=== PATIENT | female | born 1990 | race Caucasian/White ===

== ENCOUNTER → 2018-02-11 | Outpatient (CLI) | payer BC | END | disposition home or self-care (01) | LOC: C.PATHSPEC 16:43 | PROVIDERS: ATTEND Plastic Surgery | DX: D23.62 Other benign neoplasm of skin of left upper limb, including shoulder (principal) ==

== ENCOUNTER 2020-05-25 01:22 | Inpatient (IN) ==
[2020-05-25] MEDS ORDERED: OXYTOCIN 30 UNITS/500 ML BAG IV PRN ×3 (01:47→12:37)
[2020-05-25 02:22] LABS: Hematocrit (blood only) 36.3 % (37-47); Hemoglobin 12.3 g/dL (12.0-16.0); Mean Corpuscular Volume 91.4 fL (80-100); RDW Coefficient of Variation 12.4 % (11.5-14.5); RDW Standard Deviation 41.5 fL (36.4-46.3); Red Blood Count 3.97 M/uL (4.2-5.4); White Blood Count 16.56 K/uL (4.8-10.8)
[2020-05-25 02:55] LABS: Mean Corpuscular Hgb Conc 33.9 g/dL (32-36); Mean Platelet Volume 13.5 fL (7.4-10.4); Platelet Count 154 K/uL (130-400)
[2020-05-25 02:56] LABS: Basophils # (auto) 0.02 K/uL (0-0.2); Basophils % (auto) 0.1 %; Eosinophils # (auto) 0.11 K/uL (0-0.5); Eosinophils % (auto) 0.7 %; Immature Granulocytes # (auto) 0.11 K/uL (0.00-0.02); Immature Granulocytes % (auto) 0.7 %; Lymphocytes # (auto) 2.49 K/uL (1.2-3.4); Monocytes # (auto) 1.07 K/uL (0.11-0.59); Monocytes % (auto) 6.5 %; Neutrophils # (auto) 12.76 K/uL (1.4-6.5); Platelet Estimate Normal (Normal); RBC Morphology Unremarkable
[2020-05-25] MEDS: LACTATED RINGER'S 1,000 ML IV PRN ×2 (04:07→08:40)
--- NOTE | 2020-05-25 04:09 | Labor Progress Brief Note ---
Date of Service May 25, 2020 Subjective Resting in bed, FOB at bedside. No evident discomfort. Assessment & Plan (1) PROM (premature rupture of membranes): Water broken at 38 5/7, no labor yet. Discussed with patient and FOB the recommendation to begin labor using pitocin. They agree to plan. Admission and Anticipated Discharge Date Admission Date: May 25, 2020 Physical Exam Physical Exam: Cervix 3/90/0 x 2 exams since arrival. No active change. Known vertex from my recent exam in the office setting. T Cat 1. [place] quiet. LOF clear. Results & Data ([facility]) Vital Signs (Past 12 Hours) Vital Signs Temp Pulse Resp BP 05/25/20 04:00 66 106/61 05/25/20 03:50 97.9 F 05/25/20 01:43 98.4 F 92 H 18 129/85 05/25/20 01:38 98.4 F 92 H 18 129/85 Laboratory Results Laboratory Results - last 24 hr 05/25/20 01:58 WBC 16.56 H RBC 3.97 L Hgb 12.3 Hct 36.3 L MCV 91.4 MCH 31.0 MCHC 33.9 RDW Std Deviation 41.5 RDW Coeff of Claude 12.4 Plt Count 154 MPV 13.5 H Immature Gran % (Auto) 0.7 Neut % (Auto) 77.0 Lymph % (Auto) 15.0 [place] % (Auto) 6.5 Eos % (Auto) 0.7 Baso % (Auto) 0.1 Neut # (Auto) 12.76 H Lymph # (Auto) 2.49 [place] # (Auto) 1.07 H Eos # (Auto) 0.11 Baso # (Auto) 0.02 Immature Gran # (Auto) 0.11 H Platelet Estimate Normal RBC Morphology Unremarkable Coding Level of Care Code None Diagnoses PROM (premature rupture of membranes) O42.90
[2020-05-25] MEDS ORDERED: SODIUM CHLORIDE 0.9% INJ 10 ML VIAL ONE (06:21)
[2020-05-25] MEDS ORDERED: BUPIVACAINE 0.25% 30 ML VIAL ONE (06:21)
[2020-05-25] MEDS ORDERED: ePHEDrine sulfate 50 MG/ML AMP ONE (06:21)
[2020-05-25] MEDS ORDERED: fentaNYL citrate 100 MCG/2 ML VIAL ONE (06:21)
[2020-05-25] MEDS ORDERED: fentaNYL 2MCG/ML ROPIVACAINE 1.25MG/ML 100 ML BAG EPI ONE (06:22)
[2020-05-25] MEDS ORDERED: ONDANSETRON INJ 2 MG/ML 2 ML VIAL IV PRN (06:29)
[2020-05-25] MEDS ORDERED: diphenhydrAMINE 50 MG/ML VIAL IV PRN (06:29)
[2020-05-25] MEDS ORDERED: fentaNYL 2MCG/ML ROPIVACAINE 1.25MG/ML 100 ML BAG EPI PRN (06:29)
[2020-05-25] MEDS ORDERED: ePHEDrine sulfate 50 MG/ML AMP IV PRN (06:29)
[2020-05-25] MEDS ORDERED: NALOXONE HCL 1 MG in SODIUM CHLORIDE 0.9% 1000ML 1,000 ML IV PRN (06:29)
[2020-05-25] MEDS ORDERED: NALOXONE HCL 0.4 MG/1 ML VIAL/CARP IV PRN (06:29)
--- NOTE | 2020-05-25 06:29 | Anesthesiology Consultation ---
Date of Service May 25, 2020 Assessment & Plan ASA ASA2 Proposed Anesthesia Anesthesia Type: Labor Epidural Risk / Benefits Reviewed With: PT / POA / Parent / Guardian, Accepts Plan and Informed Consent Obtained History Height/Weight Height: 5 ft 7 in Weight: 73.028 kg Allergies Allergy/AdvReac Type Severity Reaction Status Date / Time No Known Drug Allergies Allergy Uncoded 05/09/20 09:49 Medications Home Medications Medication Instructions Recorded Confirmed Last Taken prenat.vits,hank,anp-akie-gurra 1 tab PO DAILY 10/20/19 05/23/20 05/24/20 21:00 Active Medications Generic Name Dose Route Start Last Admin Trade Name Freq PRN Reason Stop Dose Admin Lactated Ringer's 1,000 mls @ 125 mls/hr 05/25/20 01:47 05/25/20 06:15 Lr IV 05/27/20 01:46 999 mls/hr .Q8H PRN Titration L&D Protocol Protocol Oxytocin 30 units in 500 mls @ 7 mls/hr 05/25/20 03:55 05/25/20 05:40 Pitocin IV 05/27/20 03:54 0.42 units/hr .Q24H PRN 7 mls/hr Labor Induction/Augmentation Titration Protocol 0.42 UNITS/HR Past Medical History Medical History (Updated 05/25/20 @ 04:08 by Agnieszka Hargrove MD) Epidermal cyst Hx of varicella UTI (urinary tract infection) during Exercise / Class Metabolic Activity II 4-5 Yardwork/Stairs/Walk up hill Past Family History Family History Father Dyslipidemia Other Heart disease Hypertension Past Surgical History Surgical History [place] teeth removed Past Anesthesia History No Hx of Anesthesia Complications and No Family Hx of Anesthesia Complications History of PONV No Hx of PONV and No Hx of Motion Sickness Social History Smoking Status: Never smoker Hx Alcohol Use: No Hx Substance Use: No Review of Systems denies fever/cough/ colds/ chest pain/ SOB/ GAYLE denies GAYLE Physical Exam Vital Signs Last Vital Signs Temp 36.6 C 05/25/20 03:50 Pulse 100 H 05/25/20 07:03 Resp 18 05/25/20 06:01 BP 121/78 05/25/20 07:02 Pulse Ox 96 05/25/20 07:03 ENMT Mouth: no TMJ abnormality and no dentition abnormality Thyromental Distance: > or= 3.5 Finger Breadths Mallampati Class: II Neck neck extension not limited Respiratory normal respiratory effort; no respiratory distress Auscultation: lungs clear to auscultation bilaterally Cardiovascular Rate/Rhythm: regular rate and regular rhythm Neurologic moves all extremities Psychiatric Orientation: alert and oriented x 3 Testing Laboratory Results 05/25/20 01:58
--- NOTE | 2020-05-25 06:57 | Labor Progress Brief Note ---
Date of Service May 25, 2020 Subjective Epidural placement in progress. Patient had become significantly more uncomfortable with contractions. Assessment & Plan (1) PROM (premature rupture of membranes): Continue IOL for PROM Admission and Anticipated Discharge Date Admission Date: May 25, 2020 Physical Exam Physical Exam: T Cat 1 [place] Q4 with some irregular / closer ctx. Cvx not examined due to epidural process Pit at 7 Results & Data ([facility]) Vital Signs (Past 12 Hours) Vital Signs Temp Pulse Resp BP Pulse Ox 05/25/20 06:53 99 H 98 05/25/20 06:52 93 H 122/82 05/25/20 06:48 100 H 99 05/25/20 06:43 84 96 05/25/20 06:01 99 H 18 118/69 05/25/20 04:59 76 18 111/62 05/25/20 04:00 66 18 106/61 05/25/20 03:50 97.9 F 05/25/20 01:43 98.4 F 92 H 18 129/85 05/25/20 01:38 98.4 F 92 H 18 129/85 Coding Level of Care Code None Diagnoses PROM (premature rupture of membranes) O42.90
[2020-05-25] MEDS ORDERED: ACETAMINOPHEN 325 MG TAB PO PRN (12:37)
[2020-05-25] MEDS ORDERED: bisacodyL 10 MG SUPP PR PRN (12:37)
[2020-05-25] MEDS ORDERED: DIPHTHERIA/TETANUS/PERTUSSIS 0.5 ML SYR/VIAL IM ONE (12:37)
[2020-05-25] MEDS ORDERED: HYDROCORTISONE ACETATE 25 MG SUPP PR PRN (12:37)
[2020-05-25] MEDS ORDERED: BENZOCAINE 20% AER SPR 82.5 GM CAN EXT PRN (12:37)
[2020-05-25] MEDS ORDERED: oxyCODONE/ACETAMINOPHEN 5mg/325mg TAB PO PRN (12:37)
[2020-05-25] MEDS ORDERED: SUPERCREAM 0.870% 15 GM JAR EXT PRN (12:37)
--- NOTE | 2020-05-25 14:34 | Anesthesiology Progress Note ---
Date of Service May 25, 2020 Anesthesia Post Procedure Vital Signs Vital Signs: Temp Pulse Resp BP Pulse Ox 05/25/20 14:23 107 H 123/61 05/25/20 14:08 90 120/73 05/25/20 13:53 93 H 125/77 05/25/20 13:38 91 H 124/81 05/25/20 13:23 109 H 122/71 05/25/20 13:08 93 H 122/77 05/25/20 12:53 81 121/75 05/25/20 12:38 91 H 116/70 05/25/20 12:23 91 H 119/71 05/25/20 11:54 125 H 137/100 94 05/25/20 11:53 163 H 95 05/25/20 11:49 127 H 91 05/25/20 11:48 127 H 93 05/25/20 11:43 141 H 99 05/25/20 11:40 110 H 80 L 05/25/20 11:38 109 H 100 05/25/20 11:36 112 H 122/74 05/25/20 11:33 118 H 100 05/25/20 11:28 138 H 97 05/25/20 11:23 119 H 99 05/25/20 11:18 103 H 98 05/25/20 11:15 100 H 110/75 05/25/20 11:13 96 H 100 05/25/20 11:09 101 H 92 05/25/20 11:08 93 H 99 05/25/20 11:05 89 112/72 05/25/20 11:03 91 H 100 05/25/20 11:01 88 91 05/25/20 10:58 85 100 05/25/20 10:56 92 H 91 05/25/20 10:54 96 H 122/75 05/25/20 10:53 85 100 05/25/20 10:48 37.2 C 104 H 20 99 05/25/20 10:45 96 H 118/71 05/25/20 10:43 95 H 100 05/25/20 10:40 101 H 92 05/25/20 10:38 96 H 99 05/25/20 10:35 110 H 136/85 05/25/20 10:33 99 H 100 05/25/20 10:28 103 H 99 05/25/20 10:25 97 H 125/79 05/25/20 10:23 120 H 99 05/25/20 10:18 95 H 100 05/25/20 10:15 111 H 126/82 05/25/20 10:13 96 H 100 05/25/20 10:08 106 H 99 05/25/20 10:05 111 H 129/76 05/25/20 10:03 110 H 100 05/25/20 09:58 100 H 99 05/25/20 09:55 104 H 131/82 05/25/20 09:53 99 H 98 05/25/20 09:48 85 98 05/25/20 09:45 101 H 119/79 05/25/20 09:43 103 H 99 05/25/20 09:38 87 99 05/25/20 09:35 99 H 118/76 05/25/20 09:33 102 H 100 05/25/20 09:28 97 H 100 05/25/20 09:26 89 122/77 05/25/20 09:23 123 H 100 05/25/20 09:18 90 100 05/25/20 09:14 93 H 114/68 05/25/20 09:13 80 100 05/25/20 09:08 93 H 100 05/25/20 09:04 89 118/72 05/25/20 09:03 80 100 05/25/20 08:58 96 H 98 05/25/20 08:55 109 H 108/67 05/25/20 08:53 90 100 05/25/20 08:48 90 100 05/25/20 08:44 86 114/71 05/25/20 08:43 78 99 05/25/20 08:38 86 100 05/25/20 08:35 86 114/70 05/25/20 08:33 83 100 05/25/20 08:28 82 100 05/25/20 08:24 90 116/77 05/25/20 08:23 92 H 100 05/25/20 08:18 75 100 05/25/20 08:14 77 113/67 05/25/20 08:13 76 100 05/25/20 08:08 79 100 05/25/20 08:06 82 115/69 05/25/20 08:03 82 100 05/25/20 07:58 95 H 100 05/25/20 07:54 86 115/72 05/25/20 07:53 86 99 05/25/20 07:48 91 H 99 05/25/20 07:44 97 H 111/68 05/25/20 07:43 85 99 05/25/20 07:38 87 99 05/25/20 07:34 86 114/75 05/25/20 07:33 84 99 05/25/20 07:28 86 94 05/25/20 07:25 81 132/78 05/25/20 07:23 86 98 05/25/20 07:18 78 99 05/25/20 07:13 87 99 05/25/20 07:08 85 99 05/25/20 07:03 100 H 96 05/25/20 07:02 82 121/78 05/25/20 06:58 92 H 98 05/25/20 06:56 94 H 131/84 05/25/20 06:53 99 H 98 05/25/20 06:52 93 H 122/82 05/25/20 06:48 100 H 99 05/25/20 06:43 84 96 05/25/20 06:01 99 H 18 118/69 05/25/20 04:59 76 18 111/62 05/25/20 04:00 66 18 106/61 05/25/20 03:50 36.6 C 05/25/20 01:43 36.9 C 92 H 18 129/85 05/25/20 01:38 36.9 C 92 H 18 129/85 Transfer of Care Handoff Completed per policy Notes Mental Status: alert / awake / arousable and participated in evaluation Patient Amnestic to Procedure: Yes Nausea / Vomiting: adequately controlled Pain: adequately controlled Airway Patency, RR, SpO2: stable & adequate BP & HR: stable & adequate Hydration State: stable & adequate Anesthetic Complications: no major complications apparent and Pt Satisfied with anesthetic care
[2020-05-25] MEDS: IBUPROFEN 600 MG TAB PO PRN ×2 (16:45→20:51)
--- NOTE | 2020-05-25 17:17 | Delivery Summary ---
Vaginal Delivery Summary Date of Service at approximately 0300 hrs.Patient is a 30-year-old white female who presented with spontaneous rupture of membranes for clear fluid At approximately 0300 hrs. she required Pitocin augmentation of her labor. She received effective epidural analgesia. She progressed to full dilation and p ushed effectively over intact perineum for delivery of a viable female infant. body was delivered. There was a loose shoulder cord which was reduced after the 's Body was delivered. The was placed on the mother's abdomen for further attention and drying. There was vigorous crying and the was moving all 4 limbs. After 1 minute the cord was clamped and cut and after cord blood was obtained the placenta was expressed intact with a three-vessel cord. A second-degree perineal laceration was repaired with 3-0 chromic in the usual fashion. bleeding was controlled with dilute Pitocin and fundal massage. Estimated blood loss was 400 cc. Mother and infant were doing well after delivery. All counts were correct. May 25, 2020 [facility] Vaginal Delivery Charge Vaginal Delivery Codes: 72668 global code for the antepartum, delivery, and post-
[2020-05-25] MEDS: DOCUSATE SODIUM 100 MG CAP PO SCH (20:51)
[2020-05-26] MEDS: IBUPROFEN 600 MG TAB PO PRN ×3 (03:49→14:01)
[2020-05-26 06:51] LABS: Hematocrit (blood only) 35.3 % (37-47); Mean Corpuscular Hemoglobin 31.3 pg (25-34); Mean Corpuscular Volume 91.9 fL (80-100); RDW Coefficient of Variation 12.7 % (11.5-14.5); RDW Standard Deviation 42.7 fL (36.4-46.3); Red Blood Count 3.84 M/uL (4.2-5.4); White Blood Count 15.31 K/uL (4.8-10.8)
--- NOTE | 2020-05-26 06:57 | Obstetrical Progress Note ---
Date of Service <Felicity Klein DO - Last Filed: 05/26/20 07:36> May 26, 2020 Assessment & Plan <Felicity Klein DO - Last Filed: 05/26/20 07:36> (1) state: PPD #1 - PNL: Rh pos, RI, GBS neg, COVID neg - Feels well today. Eating well, voiding well, ambulating well. - Pain well controlled with ibuprofen 600mg Q4H PRN - Routine vaginal delivery care -- OOB, ambulation, diet progression as tolerated - After discharge will have 6 week follow-up with Dr. Trejo. - Patient requesting d/c home today/this afternoon, 24 hours after delivery Subjective <Felicity Klein DO - Last Filed: 05/26/20 07:36> Jagruti Moser is a 30 y/o female who is PPD #1 following spontaneous vaginal delivery at 38 and 5/7 weeks. She reports feeling well overall this morning. Minimal abdominal cramping and 3/10 pain only while ambulating; this is well managed on analgesics. Voiding without dysuria. Tolerating meals overnight without difficulty, nausea, or vomiting. Patient has been able to ambulate some. Has persistent lochia with some improvement this morning. Currently planning to exclusively pump. Review of Systems Denies fever or chills. Denies shortness of breath or cough. Denies chest pain. Denies breast pain. Denies dysuria. Denies leg pain or leg swelling. Denies headache or changes in vision. Physical Exam <DO Isaac Tsang Last Filed: 05/26/20 07:36> General: Alert, oriented. No acute distress. Cardiac: Regular rate and rhythm. No murmurs. Respiratory: Clear to auscultation bilaterally a/p, no wheezes/rales/rhonchi. No increased work of breathing. Symmetrical chest rise. No respiratory distress. Abdomen: Soft, nontender, nondistended. Bowel sounds present. Uterus: Uterine fundus firm, palpable at umbilicus on right. Lower Extremities: No lower extremity edema or swelling. No deep calf pain. Chuck's negative bilaterally. Results & Data ([facility]) <Felicity Klein DO - Last Filed: 05/26/20 07:36> Vital Signs (Past 12 Hours) Vital Signs Temp Pulse Resp BP 05/26/20 03:45 37.0 C 84 17 109/68 05/25/20 23:30 36.8 C 89 18 108/67 05/25/20 19:45 36.7 C 96 H 18 122/85 Laboratory Results 05/26/20 Range/Units 06:07 WBC 15.31 H (4.8-10.8) K/uL RBC 3.84 L (4.2-5.4) M/uL Hgb 12.0 (12.0-16.0) g/dL Hct 35.3 L (37-47) % MCV 91.9 (80-100) fL MCH 31.3 (25-34) pg MCHC 34.0 (32-36) g/dL RDW Std Deviation 42.7 (36.4-46.3) fL RDW Coeff of Claude 12.7 (11.5-14.5) % Plt Count Pending <Payal Davenport MD, FACOG - Last Filed: 05/26/20 08:03> Co-Signing Physician Notes Resident Physician Supervision Note: I was present with Dr. Klein during the history and exam. I discussed the case with the resident and agree with the findings and plan as documented in the note. Any exceptions or clarifications are listed here: [None] Documented By: Payal Davenport MD, FACOG Resident Activity Tracking <Felicity Klein DO - Last Filed: 05/26/20 07:36> Resident Involvement: Resident Care Provided Care Provided: OB Delivery
[2020-05-26 07:25] LABS: Mean Platelet Volume 13.1 fL (7.4-10.4); Platelet Count 146 K/uL (130-400)
[2020-05-26 07:26] LABS: Platelet Estimate Normal (Normal)
[2020-05-26] MEDS ORDERED: PRENATAL VITAMIN 1 TAB PO SCH (08:00)
[2020-05-26] MEDS: DOCUSATE SODIUM 100 MG CAP PO SCH (08:18)
[2020-05-26] MEDS ORDERED: bisacodyL 5 MG TABEC PO SCH (20:00)
== END 2020-05-26 14:46 | disposition home or self-care (01) | DRG 807 ==
LOC: OPB 01:22 → 4S1 01:25 → 4S2 16:27

== ENCOUNTER 2021-06-28 19:17 | Observation (INO) ==
[2021-06-28] MEDS ORDERED: LACTATED RINGER'S 1,000 ML IV PRN (19:44)
[2021-06-28] MEDS ORDERED: AZITHROMYCIN 500 MG in DEXTROSE 5% 250 ML IV STA (19:44)
[2021-06-28] MEDS ORDERED: BETAMETH SOD PHOS/ACETATE IA 6 MG/ML IM STA (19:44)
[2021-06-28] MEDS ORDERED: AMPICILLIN 2,000 MG in SODIUM CHLOR 0.9% AD-VAN 100 ML IV SCH (19:45)
--- NOTE | 2021-06-28 20:03 | History & Physical Report ---
Date of Service June 28, 2021 Assessment & Plan (1) premature rupture of membranes (PPROM) with unknown onset of labor: Plan: Patient at 30wk with cerclage in place, now with PPROM at 31w1d . She is made aware of this, and immediately states that she wants to leave to drive to [facility]. She was advised that at this time I recommend she remain here for appropriate treatment with PPROM antibiotics (amp and azithro), BMTZ repeat course, and Mag for neuroprotection, along with transfer to [facility] by medical route. I was on the phone with [facility] MFM, MANAGER APPOINTMENT and special agent in charge who had accepted transfer when a nurse here at [facility] put a sticky note in front of me saying that the patient intends to leave here AMA to drive to [facility] in a private vehicle, that her father is in the parking lot outside our hospital waiting to take her, and that she is refusing lab draw and getting dressed at this time. In addition, the patient was not going to have the COVID swab I ordered with her admission labs as she had tested positive for COVID two weeks ago. This was all conveyed to the [facility] staff who are aware that the patient is still expected to present to them, however she will NOT have received the amp, azithro, BMTZ second course or Mag as she is leaving [place] without having accepted any of these interventions. [facility] asked if she had gotten a GBS swab collected, and I said that she had not but I could ask if she would allow us to collect one prior to leaving; they said not to worry, they'd collect it after she arrived. The patient is now leaving our unit and [facility] is aware as above. Admission and Anticipated Discharge Date Admission Date: June 28, 2021 History of Present Illness Primary Care Provider: Sara Lafleur, DO 31yo at 31w1d , complicated by cervical insufficiency with cerclage placed at [facility] on 04/14/21. She called the o/c MD to complain of inte rmittent leakage of fluid throughout the day today. She did not feel she was having painful contractions, no VB and had good FM. She was uncertain whether membranes were ruptured or not, and thought probably not but was getting worried as leakage kept occurring in small amounts. Allergies Allergy/AdvReac Type Severity Reaction Status Date / Time No Known Drug Allergies Allergy Uncoded 04/13/21 09:58 Home Medications Medication Instructions Recorded Confirmed Type prenat.vits,hank,efz-omuk-esiis 1 tab PO DAILY 10/20/19 06/21/21 History valacyclovir 1 gram tablet 1,000 mg PO .COMPLEX #30 tab 10/25/20 06/21/21 Rx (Valtrex) levothyroxine 50 mcg tablet 50 mcg PO DAILY #90 tab 05/08/21 06/21/21 Rx Patient History Medical History Epidermal cyst Fever Hashitoxicosis Hx of varicella Hyperthyroidism Hypothyroidism UTI (urinary tract infection) during Surgical History [place] teeth removed Family History Father Dyslipidemia Mother No problems noted. Other Heart disease Hypertension Social History Smoking Status: Never smoker Hx Alcohol Use: No Hx Substance Use: No Preferred Language: Bots[place] Communication Ability: Effective Beliefs That Will Affect Care: None marital status: marital status details: Hung Moser (31) [phone] Current Living Situation: Spouse Current Living Situation Comment: lives with spouse, daughter, 1 dog current occupational status: employed current occupation: [employer] How many Children do You have: 1 Feels Safe at Home: Yes Safety Concerns: Feels Safe At This Time Dental Care, Regularly: Yes Physical Activity Frequency: Daily Seatbelt Use: always Sunscreen Use: Yes Assistive Devices: None Physical Exam Constitutional: WD/WN, vitals as above Eyes: PERRL, conjunctivae normal, anicteric sclerae Neck: supple Respiratory: normal respiratory effort and able to speak in complete sent ences; no respiratory distress Cardiovascular: Rate/Rhythm: regular rate and regular rhythm Gastrointestinal (Abdomen): Gravid / AGA, nontender Musculoskeletal: no cyanosis or clubbing, extremities motor strength 5/5 Skin: no rashes, warm and dry Psychiatric: A+Ox3, euthymic affect Genitourinary: Speculum/Bimanual Exam: uterus nontender OB Exam Abdomen: + vertex OB Exam Monitor Tracing: + external FHT monitor used, + external uterine monitor used and + category I Sterile speculum exam: cervix visually closed, cerclage in place, cervix with at least 2cm thickness visibly remaining. No pooling. No bleeding. However, swab of vagina immediately nitrazine positive (patient denies recent intercourse and no lubricant used), ferning present on slide, and amnisure very quickly turns positive. Bedside US confirms vertex presentation and subjectively low fluid with no measurable pocket. Lymphatic: no cervical or axillary lymphadenopathy Results & Data ([facility]) Vital Signs (Past 12 Hours) Vital Signs Temp Pulse Resp BP 06/28/21 19:38 98.1 F 108 H 18 111/76 06/28/21 19:28 108 H 111/76 Code Status & VTE Plan VTE Prophylaxis Plan VTE Prophylaxis will be ordered: Yes Coding Level of Care Code OBSERV/HOSP SAME DATE LVL 3 Diagnoses premature rupture of membranes (PPROM) with unknown onset of labor O42.919
--- NOTE | 2021-06-30 11:27 | Discharge Summary ---
Date of Service June 30, 2021 Admission HPI Per Admitting Provider 31yo at 31w1d , complicated by cervical insufficiency with cerclage placed at [facility] on 04/14/21. She called the o/c MD to complain of intermittent leakage of fluid throughout the day today. She did not feel she was having painful contractions, no VB and had good FM. She was uncertain whether membranes were ruptured or not, and thought probably not but was getting worried as leakage kept occurring in small amounts. Admission Exam (Per Admitting) Constitutional WD/WN, vitals as above Eyes PERRL, conjunctivae normal, anicteric sclerae Respiratory normal respiratory effort and able to speak in complete sentences; no respiratory distress Cardiovascular Rate/Rhythm: regular rate and regular rhythm Musculoskeletal no cyanosis or clubbing, extremities motor strength 5/5 Skin no rashes, warm and dry Psychiatric A+Ox3, euthymic affect Genitourinary Speculum/Bimanual Exam: uterus nontender OB Exam Abdomen: + vertex OB Exam Monitor Tracing: + external FHT monitor used, + external uterine monitor used and + category I Lymphatic no cervical or axillary lymphadenopathy Hospital Course (1) premature rupture of membranes (PPROM) with unknown onset of labor: Patient at 30wk with cerclage in place, now with PPROM at 31w1d . She is made aware of this, and immediately states that she wants to leave to drive to [facility]. She was advised that at this time I recommend she remain here for appropriate treatment with PPROM antibiotics (amp and azithro), BMTZ repeat course, and Mag for neuroprotection, along with transfer to [facility] by medical route. I was on the phone with [facility]'s MFM, DISTRESSER and sleeping car porter who had accepted transfer when a nurse here at [facility] put a sticky note in front of me saying that the patient intends to leave here AMA to drive to [facility] in a private vehicle, that her father is in the parking lot outside our hospital waiting to take her, and that she is refusing lab draw and getting dressed at this time. In addition, the patient was not going to have the COVID swab I ordered with her admission labs as she had tested positive for COVID two weeks ago. This was all conveyed to the [facility] staff who are aware that the patient is still expected to present to them, however she will NOT have received the amp, azithro, BMTZ second course or Mag as she is leaving [place] without having accepted any of these interventions. [facility] asked if she had gotten a GBS swab collected, and I said that she had not but I could ask if she would allow us to collect one prior to leaving; they said not to worry, they'd collect it after she arrived. The patient is now leaving our unit and [facility] is aware as above. Coding Level of Care Code D/C DAY MANAGEMENT <30 MINS Diagnoses premature rupture of membranes (PPROM) with unknown onset of labor O42.919
== END 2021-06-28 20:16 | disposition left against medical advice (07) ==
LOC: OPB 19:17 → 4S1 19:19 → INTOOBSV 19:44
DX: Z3A.31 31 weeks gestation of pregnancy; E03.9 Hypothyroidism, unspecified; O42.913 Preterm premature rupture of membranes, unspecified as to length of time between rupture and onset of labor, third trimester; O99.283 Endocrine, nutritional and metabolic diseases complicating pregnancy, third trimester; Z79.899 Other long term (current) drug therapy; Z79.890 Hormone replacement therapy

== ENCOUNTER 2023-12-20 08:17 | Inpatient (IN) ==
[2023-12-20] MEDS ORDERED: LIDOCAINE 1% LOCAL 20 ML VIAL INFIL PRN (08:39)
[2023-12-20] MEDS ORDERED: LACTATED RINGER'S 1,000 ML IV PRN (08:39)
--- NOTE | 2023-12-20 08:55 | History & Physical Report ---
Date of Service December 20, 2023 Assessment & Plan (1) History of hypothyroidism: (2) Normal labor: Plan 33 y/o at 39 weeks of gestational age here for labor - GBS negative - Arom if indicated - tracing category 1 - Epidural when requested History of Present Illness Primary Care Provider: BRONWYN Forrester 33 y/o at 39 weeks of gestational age. Here for labor. Complications with this include cervical insufficiency in prior /PPROM and hypothyroidism. Has been attending OB appointments regularly. Currently taking no medications. GBS negative, Rubella Immune, BTG: O positive. Contractions: yes, every 3- 4 minutes Fluid or Blood loss: none Movement: active FHR baseline 145, moderate variability, accelerations present, decelerations absent OB Labs: Blood Type O Positive 05/20/23 Antibody Screen NEGATIVE 05/20/23 Hemoglobin 12.1 g/dl (12.0-16.0) 09/30/23 Hematocrit 35.7 % (37.0-47.0) L 09/30/23 Mean Corpuscular Volume 89.2 fL (80.0-100.0) 05/20/23 Platelet Count 245 K/uL (130-400) 05/20/23 Rubella IgG Antibody Immune (Immune) 05/20/23 Rapid Plasma Reagin Nonreactive (Nonreactive) 05/20/23 Hepatitis B Surface Antigen Neg (Neg) 01/24/21 Hepatitis B Surface Antigen. NON-REACTIVE (NON-REACTIVE) 05/20/23 Hepatitis C Antibody Neg (Neg) 11/24/18 Hepatitis C Antibody (EIA) NON-REACTIVE (NON-REACTIVE) 05/20/23 HIV (1&2) Ab and P24 Ag, 4th Gener Neg (Neg) 01/24/21 HIV (1&2) Ag and Ab Confirmation NON-REACTIVE (NON-REACTIVE) 05/20/23 Glucose 1 Hour 50 gm Load 117 mg/dl (70-130) 09/30/23 OB Optional Labs: Chlamydia trachomatis RNA Not Detected (NotDetected) 05/20/23 Neisseria gonorrhoeae RNA Not Detected (NotDetected) 05/20/23 Thyroid Stimulating Hormone (TSH) 0.877 uIu/ml (0.300-4.500) 11/13/23 Labs Reviewed: (-) CF/SMA in prior , HK Declines genetics--mln Allergies Allergy/AdvReac Type Severity Reaction Status Date / Time No Known Drug Allergies Allergy Verified 12/19/23 09:18 Home Medications Medication Instructions Recorded Confirmed Type prenat.vits,hank,ujz-qwvu-sngyl 1 tab PO DAILY 10/20/19 12/20/23 History Patient History Medical History (Updated 12/20/23 @ 08:50 by Yany Marti MD) Hypothyroid Fever s/p delivery of a healthy baby boy 07/15/21 state PROM (premature rupture of membranes) UTI (urinary tract infection) during Hx of varicella Epidermal cyst Surgical History [place] teeth removed Family History Father Dyslipidemia Mother No problems noted. Other Heart disease Hypertension Social History (Updated 05/09/23 @ 13:42 by Rajwinder Lindsey) Smoking Status: Never smoker Do You Dip or Chew Tobacco: No; Hx Alcohol Use: No Hx Substance Use: No Preferred Language: Maldivian Communication Ability: Effective Target Developer Required: No Beliefs That Will Affect Care: None marital status: marital status details: Hung Moser [phone] Current Living Situation: Spouse Current Living Situation Comment: lives with spouse, 2 children, 1 dog, 1 outside cat current occupational status: employed current occupation: [employer] How many Children do You have: 1 Other Information That Helps Us Care for You: No Feels Safe at Home: Yes Dental Care, Regularly: Yes Physical Activity Frequency: Daily Seatbelt Use: always Sunscreen Use: Yes Assistive Devices: None Review of Systems as per HPI Physical Exam Physical Exam: General: patient resting comfortably, NAD, non-toxic in appearance, AA&O x 4, answers questions appropriately. Heart: +S1/S2, regular, no m/r/g Lungs: equal air entry bilaterally, no rales/rhonchi/wheezes Abd: +BS, soft, NT/ND, gravid uterus Ext: warm, no edema Neuro: nonfocal, patient AA&O x 4, speech intact, no facial droop, moving all extremities on command. Results & Data Vital Signs (Past 12 Hours) Vital Signs Temp Pulse Resp BP 12/20/23 08:35 86 122/73 12/20/23 08:28 37.0 C 20 Supervising Physician Co-Signing Physician Notes Resident Physician Supervision Note: I interviewed and examined the patient. Discussed with Dr. Marti and agree with findings and plan as documented in the note. Any exceptions or clarifications are listed here: 33 yo at 39 1/7 wga presents in labor. SVE by nursing , no bag palpated as far she could tell. GBS neg, does not desire epidural. Thinks had some leakage around 4am but not sure if still coming out, will try to assess at next check. Augment prn Documented By: Nilda Rapheal MD Resident Activity Tracking Resident Involvement: Resident Care Provided Care Provided: OB Delivery
[2023-12-20 09:37] LABS: Hematocrit (blood only) 36.4 % (37.0-47.0); Hemoglobin 12.9 g/dl (12.0-16.0); Mean Corpuscular Hemoglobin 31.8 pg (25.0-34.0); Mean Corpuscular Hgb Conc 35.4 g/dL (32.0-36.0); Mean Corpuscular Volume 89.7 fL (80.0-100.0); Mean Platelet Volume 12.8 fL (9.4-12.4); Platelet Count 172 K/uL (130-400); RDW Coefficient of Variation 12.1 % (11.5-14.5); Red Blood Count 4.06 M/uL (4.20-5.40); White Blood Count 16.41 K/ul (4.8-10.8)
[2023-12-20] MEDS ORDERED: ONDANSETRON INJ 2 MG/ML 2 ML VIAL IV PRN (10:03)
[2023-12-20] MEDS: OXYTOCIN 30 UNITS/NSS 30 UNITS/500 ML BAG IV PRN (10:11)
--- NOTE | 2023-12-20 10:24 | Delivery Summary ---
Vaginal Delivery Summary Date of Service December 20, 2023 Vaginal Delivery Summary [facility] PREOPERATIVE DIAGNOSIS: 1. Single intrauterine at 39 1/7 2. Labor 3. Hx PPROM and cerclage POSTOPERATIVE DIAGNOSIS: 1. Single intrauterine at 39 1/7 2. Labor 3. Hx PPROM and cerclage 4. Delivered PROCEDURE: 1. Normal spontaneous vaginal delivery. SURGEON: Nilda Raphael MD ANESTHESIA: None QUANTITATIVE BLOOD LOSS: 262 mL FLUIDS: Continuous LR. URINE OUTPUT: None. COMPLICATIONS: None. CONDITION: Stable. INDICATIONS: 33 yo at 39 1/7 wga presented in labor and 5-6cm. Continued to progress spontaneously and had arom of forebag. She rapidly progressed to complete FINDINGS: A viable female , weight pending with Apgars of 8 and 9 at 1 and 5 minutes respectively. SPECIMEN: Cord blood OPERATIVE REPORT: The patient progressed to complete and head of delivered in SHOSHANA position spontaneously as I entered room immediately after call bowers was rung. No nuchal cord was present. Body and shoulders were delivered without difficulty. was delivered to maternal abdomen and nursing staff. Delayed cord clamping was performed for 60 seconds. Cord was clamped and cut. Cord blood was obtained. Placenta delivered spontaneously intact with 3-vessel cord. IV oxytocin and fundal massage were given for excellent hemostasis. Vagina, cervix, perineum, and placenta were inspected. No lacerations were noted. Sponge and needle counts correct x2. No sponges were left behind. Mother and stable in immediate period. [facility] Vaginal Delivery Charge Vaginal Delivery Codes: 50718 global code for the antepartum, delivery, and post- Delivery Type Details: [facility]
[2023-12-20] MEDS ORDERED: bisacodyL 10 MG SUPP PR PRN (10:31)
[2023-12-20] MEDS ORDERED: BENZOCAINE 20% SPRY 85 APPLN/85 GM CAN EXT PRN (10:31)
[2023-12-20] MEDS ORDERED: OXYTOCIN 30 UNITS/NSS 30 UNITS/500 ML BAG IV PRN (10:31)
[2023-12-20] MEDS ORDERED: HYDROCORTISONE ACETATE 25 MG SUPP PR PRN (10:31)
[2023-12-20] MEDS ORDERED: ACETAMINOPHEN 325 MG TAB PO PRN (10:31)
[2023-12-20] MEDS: ONDANSETRON INJ 2 MG/ML 2 ML VIAL ONE (10:32)
[2023-12-20] MEDS: oxyCODONE/ACETAMINOPHEN 5mg/325mg TAB PO PRN (10:41)
[2023-12-20] MEDS: DIPHTHER/TETAN/PERTUS Vaccine (Tdap, Adol/Adult) 0.5mL IM ONE (10:47)
[2023-12-20 12:59] VITALS: TEMP 98.1
[2023-12-20] MEDS: DOCUSATE SODIUM 100 MG CAP PO SCH (20:03)
[2023-12-20] MEDS: IBUPROFEN 600 MG TAB PO PRN (20:03)
[2023-12-21 05:39] VITALS: RESP 18
[2023-12-21 06:15] LABS: Hematocrit (blood only) 32.5 % (37.0-47.0); Hemoglobin 11.1 g/dl (12.0-16.0)
--- NOTE | 2023-12-21 06:19 | Obstetrical Progress Note ---
Date of Service December 21, 2023 Assessment & Plan (1) Encounter for care and examination after delivery: Plan 33 y/o PPD#1 s/p Doing well this morning Vital signs reviewed Rubella immune, BTG: O positive Encourage breast feeding Continue post care Discharge home today, instructions reviewed Admission and Anticipated Discharge Date Admission Date: December 20, 2023 Supervising Physician Co-Signing Physician Notes Resident Physician Supervision Note: I interviewed and examined the patient. Discussed with Yany Gallagher and agree with findings and plan as documented in the note. Any exceptions or clarifications are listed here: [None] Documented By: Anton Luevano MD, FACOG Subjective 33yo post- day 1 s/p Ambulation: ambulating normally Voiding: no voiding problems Passing Gas:: Yes Diet Tolerance:: regular diet Lochia:: Small Feeding Type: bottle feeding Current Pain Level: mild Resting comfortably this AM in NAD. Denies TANG, CP, SOB, N/V/D, LE pain/swelling. Review of Systems Review of Systems: as per HPI Physical Exam Physical Exam: General: patient resting comfortably, NAD, non-toxic in appearance, AA&O x 4, answers questions appropriately. Heart: +S1/S2, regular, no m/r/g Lungs: equal air entry bilaterally, no rales/rhonchi/wheezes Abd: +BS, soft, NT/ND, uterine fundus firm at umbilicus Ext: warm, no clubbing/cyanosis or edema, Chuck's neg. Neuro: nonfocal, patient AA&O x 4, speech intact, no facial droop, moving all extremities on command. Results & Data Vital Signs (Past 12 Hours) Vital Signs Temp Pulse Resp BP Pulse Ox O2 Del Method 12/21/23 05:00 36.7 C 72 18 116/76 99 Room Air 12/21/23 01:00 36.7 C 77 16 118/76 99 Room Air 12/20/23 19:25 36.7 C 87 16 132/81 Room Air Resident Activity Tracking Resident Involvement: Resident Care Provided Care Provided: OB Delivery
[2023-12-21] MEDS: PRENATAL VITAMIN 1 TAB PO SCH (07:29)
[2023-12-21 08:20] VITALS: BP 127/84; PULSE 84; O2SAT 98
[2023-12-21] MEDS ORDERED: bisacodyL 5 MG TABEC PO SCH (20:00)
== END 2023-12-21 12:15 | disposition home or self-care (01) | DRG 807 ==
LOC: OPB 08:17 → 4S1 08:21 → 4E2 13:05
DX: O99.284 Endocrine, nutritional and metabolic diseases complicating childbirth; Z37.0 Single live birth; E03.9 Hypothyroidism, unspecified; Z87.59 Personal history of other complications of pregnancy, childbirth and the puerperium; Z3A.39 39 weeks gestation of pregnancy